=== PATIENT | female | born 1950 | race African-American/Black ===

== ENCOUNTER 2017-11-06 17:15 | Emergency (ER) | payer OTHER ==
[~2017-11-06] VITALS: Ht 149.9 cm; Wt 68.0 kg
[2017-11-06] MEDS ORDERED: PENICILLIN V P500 MG PO (18:11)
== END 2017-11-06 18:35 | disposition home or self-care (01) ==
LOC: ER 17:15
DX: K02.9 Dental caries, unspecified (principal); M19.90 Unspecified osteoarthritis, unspecified site; Z98.890 Other specified postprocedural states